=== PATIENT | female | born 1955 | race Caucasian/White ===

== ENCOUNTER 2018-03-28 12:19 | Outpatient (REF) | payer OTHER, SELFPAY ==
[2018-03-28 13:55] LABS: TSH (W/Ref FT4) 3.68 uIU/mL (0.358-3.74)
== END 2018-03-28 12:39 ==
LOC: NCHCN 12:19
PROVIDERS: Visit Provider Nurse Practitioner Family
DX: E03.9 Hypothyroidism, unspecified (principal); R53.83 Other fatigue; I10 Essential (primary) hypertension; E78.5 Hyperlipidemia, unspecified; E66.9 Obesity, unspecified
CPT/HCPCS: 84443

== ENCOUNTER 2018-05-30 13:22 | Day surgery (SDC) | payer OTHER, SELFPAY ==
--- NOTE | 2018-05-30 11:26 | W.COLOREPORT ---
Date of service: 05/30/18 Time of Service: 14:40 Colonoscopy Report Date of procedure: 05/30/18 Pre-op diagnosis general: Hx of polyps, recent diverticulitis Post-op diagnosis procedure note: other (Hx of polyps, Ferreira-diverticulosis, internal hemorrhoids) Procedure: Colonoscopy Surgeon: Marge Fairbanks Anesthesia proc note operative: MAC (Jaleesa Sanches, DIRECTOR EPIDEMIOLOGY / ASA 2) Estimated blood loss (mL): 0 Pathology: none sent Complications: None Disposition: same day Indications: Mrs. Byrd is a pleasant 62-year-old female who was seen in the office for a colonoscopy. She had just had a bout of diverticulitis. She also has a history of polyps in the past. Risks, benefits and complications have been reviewed. Complications include but are not limited to bleeding, pain, perforation, missed small lesion/polyp, sore throat, aspiration and adverse reaction to the medications. Questions were entertained and answered to their satisfaction and they wished to proceed. No guarantees were given or implied. Prep: Miralax/Dulcolax Procedure Start Time: 14:47 Procedure End Time: 15:48 Retraction Time: 11 minutes Findings: Ferreira diverticulosis and Grade 1 internal hemorrhoids Procedure Description: After informed consent was obtained the patient was taken to the procedure room and placed in a left decubitous position. Monitors were applied and a time out was done. The patients name, date of , procedure, allergies to medications and metal in their body was reviewed. The patient was then sedated. Once sedated and comfortable a rectal exam was done. External exam was normal. Internal exam revealed a normal sphincter tone and no palpable masses. The scope was then introduced and retro-flexed. Grade 1 internal hemorrhoids were identified. The scope was then advanced to the cecum without difficulty. The TI and appendiceal orifice were identified. The prep was adequate. The scope was then slowly retracted over 11 minutes back into the rectum. There was ferreira-diverticulosis noted, worse in the descending and sigmoid colon. The scope was removed and the patient was woken up and taken back to Same day surgery in stable condition. The patient tolerated the procedure well and there were no immediate complications. Follow up: The patient should follow up in 5 years unless they develop changes in bowel habits or other new gastrointestinal complaints.
--- NOTE | 2018-05-30 11:27 | W.PM.DSUDISC ---
Discharge Plan Disposition Patient Disposition: HOME Condition: Good Discharge Details Reason For Visit: DIVERTICULITIS Attending Provider: Marge Fairbanks Primary Care Provider: Barbara Boyd Home Meds and New Rx's Prescriptions: Continued losartan 25 mg tablet 25 mg PO DAILY RF: 0 Zyrtec 10 mg capsule 10 mg PO DAILY RF: 0 multivitamin [One Daily Multivitamin] tablet 1 tab PO DAILY RF: 0 coenzyme Q10 100 mg capsule 100 mg PO DAILY RF: 0 omega-3 fatty acids 1,000 mg capsule 1,000 mg PO DAILY RF: 0 Discharge Instructions Instructions: Colonoscopy (DC), Diverticulosis (DC), Hemorrhoids (DC) Additional Instructions: Findings: Diverticulosis of the entire large bowel Follow up: 5 years Please call if you develop: fevers >101.5 Nausea or Vomiting Shortness of breath Abdominal pain that is not transient DAY SURGERY UNIT POST COLONOSCOPY INSTRUCTIONS 1. Because there will be medication in your system for the next 24 hours, you may feel a little sleepy. Your coordination will be affected. Therefore: a. Do not drive or operate dangerous equipment for 24 hours. b. Do not drink alcohol beverages for 24 hours (not even beer). c. Plan to go home and rest for the day. 2. Generally there are no restrictions on your activity after a day or so has gone by, but you may feel a bit fatigued for a few days. 3 After you arrive home you may have a light meal and return to a normal diet as you can tolerate it without feeling sick to your stomach. 4. After surgery, you may feel pain or discomfort. This should be only transient, but if it persists please contact your doctor. 5. If there are any questions regarding the findings of your procedure, please feel free to contact your doctor. 6. If you are unable to contact your doctor with a problem, contact the ospital at [phone]. 7. Continue all your regular medications unless directed otherwise. I understand the above instructions and have no questions. Signature of Patient or Responsible Adult Escort Date/Time Name of Responsible Adult Escort Signature of Nurse Date/Time Activity:: Activity as Tolerated Diet:: high fiber diet Discharge Orders Discharge Orders: Discharge Order (Routine); Ordered 05/30/18 Ordered By: Marge Fairbanks DS: Diagnosis Discharge Diagnosis (1) Diverticulosis large intestine w/o perforation or abscess w/o bleeding: Status: Chronic (2) S/P colonoscopy: Status: Acute
[2018-05-30 13:37] VITALS: BP 134/83; PULSE 89; RESP 16; TEMP 37.3; O2SAT 97
[2018-05-30 13:43] VITALS: BP 134/83; PULSE 89; RESP 16; TEMP 37.3; O2SAT 97
[2018-05-30] MEDS: Lactated Ringers 1,000 ML 80 ML IV (13:55)
[2018-05-30 15:31] VITALS: BP 151/78; PULSE 70; RESP 18; TEMP 37; O2SAT 94
== END 2018-05-30 16:15 | disposition home or self-care (01) ==
PROVIDERS: PCP Nurse Practitioner Family; Visit Provider Surgery
PROC: 0DJD8ZZ Inspection of Lower Intestinal Tract, Via Natural or Artificial Opening Endoscopic (ICD-10-PCS; CPT 45378; principal; 2018-05-30 14:00)
DX: Z12.11 Encounter for screening for malignant neoplasm of colon (principal); K57.92 Diverticulitis of intestine, part unspecified, without perforation or abscess without bleeding; K57.30 Diverticulosis of large intestine without perforation or abscess without bleeding; K64.0 First degree hemorrhoids; Z86.010 Personal history of colon polyps; K21.9 Gastro-esophageal reflux disease without esophagitis; I10 Essential (primary) hypertension; Z09 Encounter for follow-up examination after completed treatment for conditions other than malignant neoplasm
CPT/HCPCS: 45378

== ENCOUNTER 2018-06-03 00:22 | Outpatient (CLI) | payer OTHER, SELFPAY ==
--- NOTE | 2018-06-03 09:42 | DI.MAMMO_ITS ---
SYMPTOM/DIAGNOSIS: SCREENING, Z12.31 MAMMOGRAMS: Mammograms were interpreted according to the usual protocol including computer analysis with CAD system, tomosynthesis and C view imaging. Comparison with prior examinations. Breast density B. No suspicious masses or microcalcifications are seen. There is no definite evidence of malignancy. IMPRESSION: Category 1-B, Negative mammogram. Routine screening is recommended. SA ASSESSMENT OF FINDINGS: Negative. Category 1. Patient will receive a letter notifying them of these results. BI-RADS category B. There are scattered areas of fibroglandular density.
--- NOTE | 2018-06-03 09:42 | DI.US_ITS ---
SYMPTOMS/DIAGNOSIS: LLQ PAIN, R10.32 PELVIC ULTRASOUND: Transabdominal and transvaginal examination was performed. The uterus measures 6.8 cm long x 3.1 cm AP x 4.5 cm transverse. The endometrial stripe is within normal limits at .2 cm. No myometrial masses are identified on this examination. The right ovary was not identified transabdominally or transvaginally. No right adnexal mass is present. Sonographically the left ovary measures 1.2 x 0.9 x 1.3 cm and is grossly unremarkable. Normal blood flow is seen. No evidence of torsion. No free pelvic fluid or hydronephrosis is identified. IMPRESSION: Unremarkable pelvic ultrasound. Nonvisualization of the right ovary transabdominally or transvaginally. No right adnexal mass is seen sonographically.
== END 2018-06-03 00:42 ==
PROVIDERS: PCP Nurse Practitioner Family; Visit Provider Nurse Practitioner Family
DX: R10.32 Left lower quadrant pain (principal); Z12.31 Encounter for screening mammogram for malignant neoplasm of breast
CPT/HCPCS: 77063; 77067; 76830; 76856

== ENCOUNTER 2018-09-24 13:26 | Outpatient (REF) | payer OTHER, SELFPAY ==
[2018-09-24 21:06] LABS: Anion Gap 6.2 mmol/L (3-11); BUN 14 mg/dL (7-18); CO2 31.8 mmol/L (21.0-32.0); CREATININE 0.94 mg/dL (0.55-1.02); Chloride 103 mmol/L (98-107); Cholesterol 243 mg/dL (50-200); Glucose 94 mg/dL (70-100); HDL Cholesterol 66 mg/dL (40-60); LDL CHOLESTEROL 147 mg/dL (<100); Potassium 4.6 mmol/L (3.5-5.1); Sodium 141 mmol/L (136-145); Triglyceride 120 mg/dL (30-150)
[2018-09-24 21:13] LABS: Calcium 9.5 mg/dL (8.5-10.1)
[2018-09-24 21:31] LABS: FREE T4 0.67 ng/dL (0.76-1.46)
== END 2018-09-24 13:46 ==
LOC: NCHCN 13:26
PROVIDERS: PCP Nurse Practitioner Family; Visit Provider Nurse Practitioner Family
DX: E78.5 Hyperlipidemia, unspecified (principal); I10 Essential (primary) hypertension; E03.9 Hypothyroidism, unspecified; E66.9 Obesity, unspecified
CPT/HCPCS: 80048; 80061; 83721; 84439; 84443

== ENCOUNTER 2019-01-28 09:50 | Outpatient (REF) | payer OTHER, SELFPAY ==
[2019-01-28 13:19] LABS: TSH (W/Ref FT4) 5.39 uIU/mL (0.36-3.74)
== END 2019-01-28 10:10 ==
LOC: NCHCN 09:50
PROVIDERS: PCP Nurse Practitioner Family; Visit Provider Nurse Practitioner Family
DX: I10 Essential (primary) hypertension (principal); E03.9 Hypothyroidism, unspecified; R53.83 Other fatigue; E78.5 Hyperlipidemia, unspecified; J30.9 Allergic rhinitis, unspecified
CPT/HCPCS: 84439; 84443

== ENCOUNTER 2020-04-01 16:18 | Outpatient (REF) | payer OTHER, SELFPAY ==
--- NOTE | 2020-04-01 14:00 | PAPFT_PTH ---
PATIENT: Rachael Byrd LOC: [facility] U#:[id number] AGE/SX: 64/F ROOM: RE04/01/[address]: NELI Escamilla : 1955 BED: DIS: 04/01/2020 SPEC #: [id number] RECD: 04/01/20 17:38 STATUS: PEYTON REBogdan #: [id number] NATHANAEL: 04/01/20 14:[address]: Eli Harden DEPT: [facility] Cytology RECD BY: Angela Malone ENTERED: 04/01/20 17:39 SP TYPE: PAPFT OTHR DR: Barbara Boyd Tissues: 1 - CX/ENDOCX FOR PAP SMEARS Procedures: PAP THIN PREP/UVM Screening HPV DNA PROBE Comments: [id number]
== END 2020-04-01 16:38 ==
LOC: LBN 16:18
PROVIDERS: PCP Nurse Practitioner Family; Visit Provider Nurse Practitioner Family
DX: Z12.4 Encounter for screening for malignant neoplasm of cervix (principal); Z11.51 Encounter for screening for human papillomavirus (HPV)
CPT/HCPCS: 88142; 87624

== ENCOUNTER 2020-04-21 01:19 | Outpatient (CLI) | payer OTHER, SELFPAY ==
--- NOTE | 2020-04-21 13:13 | DI.MAMMO_ITS ---
EXAM: MG MAMMO SCREENING CLINICAL HISTORY: screening TECHNIQUE: Bilateral full field digital CC and MLO mammographic images were obtained with 3D tomosyn thesis and utilizing computer aided detection (CAD). COMPARISON: Available for comparison. FINDINGS: Masses/Architectural Distortion: None seen. Microcalcifications: No suspicious pleomorphic-type are seen. Skin Thickening/Nipple Retraction: None. IMPRESSION: 1. No significant interval change with no specific features of malignancy noted. 2. Unless there is more urgent need, screening mammography is recommended, as per [place] [employer] guidelines. BI-RADS Category 1 - Negative Breast Density - Category B - Scattered areas of fibroglandular density A negative radiographic report should not delay biopsy if a dominant or clinically suspicious mass is present. Up to ten percent of cancers are not identified on mammography. A negative report may reinforce clinical impression. Adenosis and dense breasts may obscure an underlying neoplasm. False positive reports average 6 to 10%. Patient will receive a letter notifying them of these results.
== END 2020-04-21 01:39 ==
PROVIDERS: PCP Nurse Practitioner Family; Visit Provider Nurse Practitioner Family
DX: Z12.31 Encounter for screening mammogram for malignant neoplasm of breast (principal)
CPT/HCPCS: 77063; 77067

== ENCOUNTER 2021-09-28 01:04 | Outpatient (CLI) | payer OTHER, SELFPAY ==
--- NOTE | 2021-09-28 16:19 | DI.MAMMO_ITS ---
Exam(s) MAMMO SCREENING EXAM: MAMMO SCREENING CLINICAL HISTORY: SCREENING, [id number] TECHNIQUE: Mammograms were interpreted according to the usual protocol including computer analysis w [employer] CAD system, tomosynthesis and C-view imaging. COMPARISON: 2011 through 2019 FINDINGS: The breasts are composed of scattered fibroglandular densities, Breast Density category B. No suspicious masses or suspicious microcalcifications are seen. No skin thickening or abnormal axillary lymph nodes are seen. There has been no significant change from prior exams. IMPRESSION: BI-RADS Category 1, Negative mammogram Yearly screening mammography is recommended. Breast Density - Category B, scattered fibroglandular densities. A negative radiographic report should not delay biopsy if a dominant or clinically suspicious mass is present. Up to ten percent of cancers are not identified on mammography. A negative report may reinforce clinical impression. Adenosis and dense breasts may obscure an underlying neoplasm. False positive reports average 6 to 10%. Patient will receive a letter notifying them of these results.
== END 2021-09-28 01:24 ==
PROVIDERS: PCP Nurse Practitioner Family; Visit Provider Internal Medicine
DX: Z12.31 Encounter for screening mammogram for malignant neoplasm of breast (principal)
CPT/HCPCS: 77063; 77067

== ENCOUNTER 2022-01-30 15:38 | Outpatient (CLI) | payer OTHER, SELFPAY ==
--- NOTE | 2022-01-30 14:15 | DI.RAD_ITS ---
Exam(s) XR HIP LT COMPLETE AP PELVIS EXAM: XR HIP LT COMPLETE AP PELVIS CLINICAL HISTORY: pain. TECHNIQUE: 2D digital imaging was performed. COMPARISON: No exams were available for comparison FINDINGS: Two views-AP pelvis both hips plus lateral view of the left hip: No evidence of pelvic nor hip fracture. No hip joint space narrowing. Lateral view of the left hip does not reveal osteophytes nor joint space narrowing. Bone density is normal. No osseous lesions. IMPRESSION: DATA REPOSITORY: RADIATION DOSE DELIVERED:
--- NOTE | 2022-01-30 14:15 | DI.RAD_ITS ---
Exam(s) XR LUMBAR SPINE AP, LAT EXAM: XR LUMBAR SPINE AP, LAT CLINICAL HISTORY: numbness. TECHNIQUE: 2D digital imaging was performed. COMPARISON: No exams were available for comparison FINDINGS: 3 views There is no evidence of fracture, listhesis, or pars defects. There is mild disc space narrowing at L4-5 and L5-S1 levels. Also slight anterior osseous lipping at L3-4 level may indicate degenerative disc disease despite preserved disc height at this level. Bone density normal. No osseous lesions. No scoliosis. Mild degenerative changes in the facet joints. SI joints appear unremarkable. IMPRESSION: Mild disc space narrowing as described above. If clinically indicated follow-up MRI can be performed . DATA REPOSITORY: RADIATION DOSE DELIVERED:
== END 2022-01-30 15:39 | disposition home or self-care (01) ==
LOC: DIORS 15:38
PROVIDERS: PCP Nurse Practitioner Family; Referring Provider Nurse Practitioner Family; Visit Provider Physician Assistant Surgical
DX: M25.552 Pain in left hip (principal); R20.0 Anesthesia of skin; M48.061 Spinal stenosis, lumbar region without neurogenic claudication; M48.07 Spinal stenosis, lumbosacral region
CPT/HCPCS: 72100; 73502

== ENCOUNTER → 2022-02-02 01:15 | Outpatient (CLI) | payer OTHER, SELFPAY ==
--- NOTE | 2022-02-02 07:52 | DI.RAD_ITS ---
Exam(s) RF JOINT INJECTION FLUORO GUID EXAM: RF JOINT INJECTION FLUORO GUID CLINICAL HISTORY: L HIP INJ UNDER FLUORO.[id number],LT HIP PAIN, M25.552. TECHNIQUE: 2D and realtime digital imaging was performed. COMPARISON: CR XR HIP LT COMPLETE AP PELVIS from 01/30/2022 FINDINGS: Approximately with provided for Dr. Rios for guidance with performing a left hip injection Please see procedure note for details. Fluoro time: 1 second RADIATION DOSE DELIVERED: reji Hall=13.7 mGy
[2022-02-02] MEDS: Bupivacaine 0.5% Pres-Free 30 ML VIAL 5 ML IJ (14:57)
[2022-02-02] MEDS: methylPREDNISolone ACETATE 80 MG/ML VIAL IM (14:58)
[2022-02-02] MEDS: Omnipaque 300 MG/ML 10 ML BTL IJ (14:58)
--- NOTE | 2022-02-05 17:21 | W.PROCNOTE ---
Date of service: 02/02/22 Time of Service: 14:30 Procedure Note Date of procedure: 02/02/22 Procedure: Left Hip Injection with Fluoroscopic Guidance Surgeon/Proceduralist/Physician: Mookie Rios Procedure Diagnosis: Left Hip Pain Procedure Indications: Rachael has had persistent pain of the LEFT hip and groin. Noninvasive measures have been tried. To serve as both diagnostic and therapeutic, an injection under fluoroscopy was recommended. I had discussed the risks of the procedure and the patient elected to proceed. Procedure Description: Rachael was greeted in the flouroscopy room. The correct side was identified and the consent was reviewed with the patient and signed. The patient was then placed in the supine position on the fluoroscopy table. The LEFT hip was then prepped with Chloraprep. The anterolateral injection starting point was identiifed by bony landmarks and fluoroscopy. The skin and soft tissue in the tract of the injection was anesthetized with 1% Lidocaine. A spinal needle was then inserted deep into the hip joint at the level of the lateral femoral neck under fluoroscopic guidance. A small amount of Omnipaque solution was injected to confirm intraarticular placement. Once confirmed, the hip was injected with 6cc of 0.5% Bupivicaine and 80mg of Depo-Medrol. A bandaid was placed on the injection site. The patient tolerated the procedure well and noted improvement in pre-injection pain.
== END ==
PROVIDERS: PCP Nurse Practitioner Family; Visit Provider Student in an Organized Health Care Education/Training Program
DX: M25.552 Pain in left hip (principal)
CPT/HCPCS: 20610; 77002; J1040

== ENCOUNTER 2022-03-13 06:13 | Day surgery (SDC) | payer OTHER, SELFPAY ==
[2022-03-13 06:15] VITALS: BP 133/65; PULSE 89; RESP 18; TEMP 36.5; O2SAT 96
--- NOTE | 2022-03-13 06:25 | HPE_ITS ---
Assessment and Plan Assessment and plan (1) Encounter for screening colonoscopy for bmt-jcbx-qdrb patient: Status: Acute Assessment and plan: Rachael is back to see me today because she has been having more bleeding and itching from her internal hemorrhoids.? She had a colonoscopy back in 2017 which was unremarkable.? She did have some precancerous polyps prior to that.? She also has a family history of colon cancer in her mother.? She is scheduled for colonoscopy in July but in light of her issue with her internal hemorrhoids we will try to move that up so that we can do a colonoscopy and internal hemorrhoid banding.? We discussed both the colonoscopy and the internal hemorrhoid banding.? We reviewed the risks, benefits, alternatives and complications.? Risks, benefits and complications have been reviewed. Complications include but are not limited to bleeding, pain, perforation, missed small lesion/polyp, sore throat, aspiration and adverse reaction to the medications. Questions were entertained and answered to their satisfaction and they wished to proceed. No guarantees were given or implied. Proceed with colonoscopy and internal hemorrhoid banding under sedation. History of Present Illness Narrative: Mrs Byrd is a pleasant 66 year old female who is here to discuss treatment for hemorrhoids. She had a Colonoscopy in 2017 and she had no polyps but was noted to have internal hemorrhoids.? She has dealt with them but recently has had increase in pain, itching and bleeding. She also has some stool leakage. She is due for a colonoscopy in may and is scheduled for one in July. She has had no melena, changes in bowel habits, or unintentional weight loss.? She has a family history of colon cancer in her Mother. Review of Systems All systems reviewed & are unremarkable except as noted in HPI and below PFSH All Active Problems Encounter for screening colonoscopy for gyg-goeb-mrtb patient (Acute) Internal hemorrhoids (Acute) Bright red blood per rectum (Acute) Screening for colon cancer (Acute) External hemorrhoid, bleeding (Acute) TBI (traumatic brain injury) (Acute) Hypertension (Chronic) Vaginal atrophy (Acute) Post-menopausal bleeding (Acute) S/P colonoscopy (Acute ~05/30/18) Diverticulosis large intestine w/o perforation or abscess w/o bleeding (Chronic) Pseudocholinesterase deficiency (Chronic) Family history of ovarian cancer (Acute) Mother - at 71 Renal mass, right (Acute 09/09/15) Medical History Abnormal Pap history abnormal Pap history FRANNY 1 with colpo/Bx 1997 benign HPV + 2011 Colpo repeat negative . Endocx curettage benign DIVERTICULOSIS herniated lumbar disc 2013 Hyperlipidemia Obesity Postmenopausal bleeding 04/2014 Subclinical hypothyroidism Torn L meniscus 2013 Surgical History Arthroplasty of knee 04/2014 [facility] Dr [place] section x2 Colonoscopy - IV Sedation (06/15/08) NO POLYPS S/P lateral meniscus repair of right knee 2015 Family History Mother Personal history of malignant neoplasm Ovarian cancer Colon cancer Sister Leukemia Other Heart disease Hyperlipidemia Social History Smoking/Tobacco Use Status: Never Smoking risk assessment performed?: Yes Alcohol Intake: current Alcohol Intake frequency: a few times a week Drug use: Never Substance use type: does not use Do you feel safe at home: Yes Do you feel safe in your relationship?: Yes Female Reproductive History Menstrual Menopause type: natural History History 2 Para 2 Hx # Term Pregnancies Multiple births Hx # Pregnancies Ectopic pregnancies AB induced Hx Number of Living Children AB spontaneous Meds Allergies and Home Medications Allergies Allergy/AdvReac Type Severity Reaction Status Date / Time amlodipine [From Norvasc] Allergy Intermediate Itching Verified 03/13/22 06:31 lisinopril Allergy Intermediate Itching Verified 03/13/22 06:31 losartan Allergy Unknown Verified 03/13/22 06:31 WALNUTS Allergy BLISTER IN Uncoded 03/13/22 06:31 MOUTH Home Medications Medication Instructions Recorded Confirmed Type cetirizine 10 mg capsule (Zyrtec) 10 mg PO DAILY 04/23/18 03/13/22 History multivitamin (One Daily 1 tab PO DAILY 05/16/18 03/13/22 History Multivitamin tablet) omega-3 fatty acids 1,000 mg 1,000 mg PO DAILY 05/16/18 03/13/22 History capsule hydrocortisone acetate 25 mg 25 mg WA BID #12 ea 09/25/20 03/10/22 Rx rectal suppository (Anusol-HC) B6 1.7 mg-folic 400 mcg-B12 2.4 1 cap PO DAILY 03/22/21 03/13/22 History wbb-kemhxg-gwuirjudkjwu oral capsule (Neuriva Plus Brain Performance) estradiol 10 mcg vaginal tablet 10 mcg vaginal DAILY 2 weeks #24 06/07/21 03/13/22 Rx (Vagifem) tabs coenzyme Q10 30 mg capsule (Co 30 mg PO DAILY 02/02/22 03/13/22 History Q-10) glucosamine sulfate 500 mg tablet 500 mg PO DAILY 02/02/22 03/13/22 History (Glucosamine) bisacodyl 5 mg tablet,delayed 5 mg PO ONCE #4 tabs 02/07/22 03/13/22 Rx release (Dulcolax (bisacodyl)) polyethylene glycol 3350 17 17 g PO ONCE #238 grams 02/07/22 03/13/22 Rx gram/dose oral powder Exam Const General: cooperative, comfortable and no acute distress Orientation: alert and oriented x3 Resp Effort & Inspection: normal respiratory effort Auscultation: clear to auscultation bilaterally Cardio Rate: regular rate Rhythm: regular rhythm
--- NOTE | 2022-03-13 06:28 | COLE_ITS ---
Colonoscopy Report Date of procedure: 03/13/22 Pre-op diagnosis general: Colon Cancer Screening and internal hemorrhoids Post-op diagnosis procedure note: same (and external hemorrhoids, diverticulosis) Procedure: Colonoscopy Anoscopy with internal hemorrhoid banding Surgeon: Marge Fairbanks Anesthesia Type: General:No Airway Estimated blood loss (mL): 3 Pathology: none sent Complications: None Disposition: same day Indications: Rachael is back to see me today because she has been having more bleeding and itching from her internal hemorrhoids.? She had a colonoscopy back in 2017 which was unremarkable.? She did have some precancerous polyps prior to that.? She also has a family history of colon cancer in her mother.? She is scheduled for colonoscopy in July but in light of her issue with her internal hemorrhoids we will try to move that up so that we can do a colonoscopy and internal hemorrhoid banding.? We discussed both the colonoscopy and the internal hemorrhoid banding.? We reviewed the risks, benefits, alternatives and complications.? Risks, benefits and complications have been reviewed. Complications include but are not limited to bleeding, pain, perforation, missed small lesion/polyp, sore throat, aspiration and adverse reaction to the medicati ons. Questions were entertained and answered to their satisfaction and they wished to proceed. No guarantees were given or implied. Proceed with colonoscopy and internal hemorrhoid banding under sedation. Prep: Miralax/Dulcolax Procedure Start Time: :26 Procedure End Time: 07:50 Retraction Time: 12 minutes Findings: External and internal hemorrhoids Moderate ferreira-diverticulosis Procedure Description: After informed consent was obtained the patient was taken to the procedure room and placed in a left decubitous position. Monitors were applied and a time out was done. The patients name, date of , procedure, allergies to medications and metal in their body was reviewed. The patient was then sedated. Once sedated and comfortable a rectal exam was done. External exam was normal. Internal exam revealed a normal sphincter tone and no palpable masses. The scope was then introduced and retro-flexed. Grade 2 internal hemorrhoids were identified. No polyps or masses were identified on retro-flexion. The scope was then advanced to the cecum without difficulty. The ileocecal vlave and appendiceal orifice were identified. The prep was good. The scope was then slowly retracted over 12 minutes back into the rectum. There were no Polyps. There was moderate ferreira- diverticulosis noted. The scope was removed. Anoscopy was then performed and 2 Grade 2 internal hemorrhoids were banded at the 9 and 3 o'clock position. The patient was woken up and taken back to Same day surgery in stable condition. The patient tolerated the procedure well and there were no immediate complications.
--- NOTE | 2022-03-13 06:29 | W.PM.DSUDISC ---
Discharge Plan Disposition Patient Disposition: HOME Condition: Good Discharge Details Reason For Visit: colonoscopy Attending Provider: Marge Fairbanks Primary Care Provider: Barbara Boyd Home Meds and New Rx's Prescriptions: Continued Zyrtec 10 mg capsule 10 mg PO DAILY multivitamin [One Daily Multivitamin] tablet 1 tab PO DAILY omega-3 fatty acids 1,000 mg capsule 1,000 mg PO DAILY Neuriva Plus Brain Performance 1.7 mg-400 mcg- 2.4 mcg capsule 1 cap PO DAILY hydrocortisone acetate [Anusol-HC] 25 mg suppository 25 mg [place] BID Qty: 12 0RF Rx Instructions: insert one suppository twice daily. Do not exceed use for one week estradiol [Vagifem] 10 mcg tablet 10 mcg vaginal DAILY 14 Days Qty: 24 3RF Rx Instructions: use one tab in vagina at bedtime twice weekly glucosamine sulfate [Glucosamine] 500 mg tablet 500 mg PO DAILY Rx Instructions: administer with a meal coenzyme Q10 [Co Q-10] 30 mg capsule 30 mg PO DAILY Discontinued bisacodyl [Dulcolax (bisacodyl)] 5 mg tablet,delayed release (DR/EC) 5 mg PO ONCE Qty: 4 0RF Rx Instructions: Take according to provider's instructions for colonoscopy prep. polyethylene glycol 3350 17 gram/dose powder 17 g PO ONCE Qty: 238 0RF Rx Instructions: To be taken as directed by prescriber's office for colonoscopy prep. Discharge Instructions Instructions: Hemorrhoids (DC), Rubber Band Ligation (DC), Diverticulosis (DC) Additional Instructions: Findings: internal hemorrhoids, diverticulosis Follow up: 10 years Please call if you develop: fevers >101.5 Nausea or Vomiting Abdominal pain that is not transient Rectal bleeding that is more then a tbsp A hard abdomen and inability to pass gas DAY SURGERY UNIT POST ENDOSCOPY INSTRUCTIONS Instructions for everyone who is given Anesthesia: For your safety, please do the following for the next 24 Hours: a. Do not drive or operate dangerous equipment b. Do not drink alcohol beverages or use any recreational drugs for the first 24 hours or while taking pain medications. The medications in your body may have a reaction that can be dangerous. c. Do not make any important decisions or sign any important papers 1. Generally there are no restrictions on your activity after a day or so has gone by, but you may feel a bit fatigued for a few days. 2. After you arrive home you may have a light meal and return to a normal diet as you can tolerate it without feeling sick to your stomach. 3. After surgery, you may feel pain or discomfort. This should be only transient, but if it persists please contact your doctor. 4. If there are any questions regarding the findings of your procedure, please feel free to contact your doctor. 6. If you are unable to contact your doctor with a problem, contact the hospital at [phone]. 7. Continue all your regular medications unless directed otherwise. I understand the above instructions and have no questions. Signature of Patient or Responsible Adult Escort Date/Time Name of Responsible Adult Escort Signature of Nurse Date/Time Activity:: Activity as Tolerated Diet:: hhigh fiber diet Discharge Orders Discharge Orders: Discharge Order (Routine); Ordered 03/13/22 Ordered By: Marge Fairbanks DS: Diagnosis Discharge Diagnosis (1) Encounter for screening colonoscopy for [id number] patient: Status: Acute
[2022-03-13] MEDS: Lactated Ringers 1,000 ML 80 ML IV (06:45)
--- NOTE | 2022-03-13 07:09 | ANES.PREOP_ITS ---
General Info Date of Service Date Performed: 03/13/22 Height: 5 ft 2 in Weight: 79.5 kg Body Mass Index (BMI): 32.0 Surgical Procedure: Operation Date: 03/13/22 07:40 Proposed Procedure Side Surgeon p Colonoscopy Marge Fairbanks MD s Hemorrhoid Banding Marge Fairbanks MD Meds Allergies and Home Medications Allergies Allergy/AdvReac Type Severity Reaction Status Date / Time amlodipine [From [facility]] Allergy Intermediate Itching Verified 03/13/22 06:31 lisinopril Allergy Intermediate Itching Verified 03/13/22 06:31 losartan Allergy Unknown Verified 03/13/22 06:31 WALNUTS Allergy BLISTER IN Uncoded 03/13/22 06:31 MOUTH Home Medication Medication Instructions Recorded cetirizine 10 mg capsule (Zyrtec) 10 mg PO DAILY 04/23/18 multivitamin (One Daily 1 tab PO DAILY 05/16/18 Multivitamin tablet) omega-3 fatty acids 1,000 mg 1,000 mg PO DAILY 05/16/18 capsule hydrocortisone acetate 25 mg 25 mg FL BID #12 ea 09/25/20 rectal suppository (Anusol-HC) B6 1.7 mg-folic 400 mcg-B12 2.4 1 cap PO DAILY 03/22/21 [id number] oral capsule (Neuriva Plus Brain Performance) estradiol 10 mcg vaginal tablet 10 mcg vaginal DAILY 2 weeks #24 06/07/21 (Vagifem) tabs coenzyme Q10 30 mg capsule (Co 30 mg PO DAILY 02/02/22 Q-10) glucosamine sulfate 500 mg tablet 500 mg PO DAILY 02/02/22 (Glucosamine) bisacodyl 5 mg tablet,delayed 5 mg PO ONCE #4 tabs 02/07/22 release (Dulcolax (bisacodyl)) polyethylene glycol 3350 17 17 g PO ONCE #238 grams 02/07/22 gram/dose oral powder Current Visit Medications: Current Medications Generic Name Dose Route Start Last Admin Trade Name Freq PRN Reason Stop Dose Admin Hyoscyamine Sulfate 0.125 mg 03/13/22 06:32 Hyoscyamine 0.125 Mg Sl/Oral/Chew SL DIRECTED PRN Ringer's Solution 1,000 mls @ 80 mls/hr 03/13/22 06:00 03/13/22 06:45 IV 04/09/22 23:59 80 mls/hr INFUSION CARYN Administration IV Miscellaneous Supplies 1 each 03/13/22 06:00 Iv Access IV 04/09/22 23:59 DIRECTED CARYN Ondansetron HCl 4 mg 03/13/22 06:32 Ondansetron 4 Mg/2 Ml Vial IVP Q4H PRN PRN Nausea / Vomiting Sodium Chloride 0 ml 03/13/22 06:00 Normal Saline Flush 10 Ml Syr IV 04/09/22 23:59 PRN PRN Sodium Chloride 0 ml 03/13/22 06:00 Normal Saline 10 Ml Vial IJ 04/09/22 23:59 DIRECTED PRN Sterile Water 0 ml 03/13/22 06:00 Water,Injection,Sterile 10 Ml Vial IJ 04/09/22 23:59 DIRECTED PRN PFSH Active Problems Active Problems: Problem Status Onset Code Encounter for screening colonoscopy for [id number] patient Z12.11 Internal hemorrhoids K64.8 Bright red blood per rectum K62.5 Screening for colon cancer Z12.11 External hemorrhoid, bleeding K64.4 TBI (traumatic brain injury) S06.9X9A Hypertension I10 Vaginal atrophy N95.2 Post-menopausal bleeding N95.0 S/P colonoscopy ~05/30/18 Z98.890 Diverticulosis large intestine w/o perforation or abscess w/o bleeding K57.30 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 Endocx curettage benign DIVERTICULOSIS herniated lumbar disc 2013 Hyperlipidemia Obesity Postmenopausal bleeding 04/2014 Subclinical hypothyroidism Torn L meniscus 2013 Surgical History Surgical History Arthroplasty of knee 04/[address] [facility] [address] [place] section x2 Colonoscopy - IV Sedation (06/15/08) NO POLYPS S/P lateral meniscus repair of right knee 2016 Tobacco Smoking/Tobacco Use Status: Never Alcohol Alcohol Intake: current Alcohol intake frequency: a few times a week Substance Use Substance use: Never Substance use type: does not use Prental History History 2 Para 2 Hx # Term Pregnancies Multiple births Hx # Pregnancies Ectopic pregnancies AB induced Hx Number of Living Children AB spontaneous Vital Signs and Lab Results Vital Signs Most Recent Vital Signs in EMR: Most Recent Vital Signs Temp Pulse Resp BP Pulse Ox 36.5 C 89 18 133/65 96 03/13/22 06:15 03/13/22 06:15 03/13/22 06:15 03/13/22 06:15 03/13/22 06:15 Lab Results Blood Type / Crossmatch: No Data to Display Complete Blood Count: No Data to Display Complete Metabolic Panel: No Data to Display Liver Function Panel: No Data to Display Coagulation Panel: No Data to Display Cardiac Panel: No Data to Display Arterial Blood Gas: No Data to Display Venous Blood Gas: No Data to Display Pancreas Panel: No Data to Display Thyroid Panel: No Data to Display Infectious Disease: No Data to Display Blood Cultures: No Data to Display Toxicology Panel: No Data to Display Anesthesia Assessment and Plan Anesthesia History Personal History: Pseudocholinesterase Deficiency Family History: No Family History of Anesthesia Complications Exercise Tolerance Exercise Tolerance: Metabolic Equivalents>4 Pertinent Negatives Pertinent Negatives: No Symptoms of GERD, No Major Cardiovascular Symptoms or Complaints, No Major Pulmonary Symptoms or Complaints and No History of CVA/TIA Cardiac & Pulmonary Exam Cardiac Exam: Normal S1/S2 Heart Sounds Pulmonary Exam: Clear Bilateral Breath Sounds Implantable Cardiac Device Does patient have a Pacemaker or an ICD?: No Airway Exam Known Difficult Airway: No Mallampati Class: 3 Mouth Opening: Normal (> 3cm) Thyromental Distance: Greater than 3 cm Neck Range of Motion: Full ROM Neck Circumference: Normal Teeth Condition: Normal Dentition ASA Classification ASA Score: ASA 2 Emergency Case?: No NPO Status NPO Status: NPO Clears >2 hours, Solids >8 hours Anesthesia Plan Resuscitation Status: Full Code Anesthesia Technique: General Anesthesia Airway Planned: Natural Airway Monitors Used: Standard Monitors
[2022-03-13 07:17] VITALS: BMI 32.0
[2022-03-13 07:57] VITALS: BP 136/78; PULSE 89; RESP 18; TEMP 36.5; O2SAT 97
--- NOTE | 2022-03-13 08:07 | W.ANESPOSTOP ---
Postoperative Evaluation Date, Time and Location Date Performed: 03/13/22 Time Performed: 08:07 Patient Location: Day Surgery Unit Vital Signs Most Recent Imported Vital Signs: Most Recent Vital Signs Temp Pulse Resp BP Pulse Ox 36.5 C 89 18 136/78 97 03/13/22 07:57 03/13/22 07:57 03/13/22 07:57 03/13/22 07:57 03/13/22 07:57 Pain Score Most Recent Pain Score: Most Recent Pain Score Pain Level 3 03/13/22 07:57 Assessment Mental Status: Awake (Alert & Oriented to Patient Baseline) Airway and Respiratory Function: Patent airway with normal (patient baseline) respiratory exam Cardiovascular Function: Hemodynamically Stable Hydration Status: Adequately Hydrated Nausea & Vomiting: No Nausea or Vomiting Pain: Pain is tolerable per patient Peripheral Nerve Block: Patient did not receive a nerve block
[2022-03-13 08:10] VITALS: BP 129/72; PULSE 80; RESP 18; TEMP 36.5; O2SAT 96
[2022-03-13] MEDS: Ketorolac 30 MG/ML VIAL IVP (08:35)
[2022-03-13 08:47] VITALS: BP 147/66; PULSE 81; RESP 18; TEMP 36.4; O2SAT 95
== END 2022-03-13 09:03 | disposition home or self-care (01) ==
PROVIDERS: PCP Nurse Practitioner Family; Visit Provider Surgery
PROC: 0DJD8ZZ Inspection of Lower Intestinal Tract, Via Natural or Artificial Opening Endoscopic (ICD-10-PCS; CPT 45378; principal; 2022-03-13 07:30)
PROC: (CPT 45378; 2022-03-13 07:30)
DX: Z12.11 Encounter for screening for malignant neoplasm of colon (principal); K64.8 Other hemorrhoids; K64.4 Residual hemorrhoidal skin tags; Z86.010 Personal history of colon polyps; Z80.0 Family history of malignant neoplasm of digestive organs; K57.30 Diverticulosis of large intestine without perforation or abscess without bleeding
CPT/HCPCS: 45378; 46221; J1885

== ENCOUNTER → 2023-04-16 01:45 | Outpatient (CLI) | payer MEDICARE, SELFPAY ==
--- NOTE | 2023-04-16 09:30 | DI.MAMMO_ITS ---
Exam(s) MAMMO SCREENING EXAM: MAMMO SCREENING CLINICAL HISTORY: screening, Z12.39 TECHNIQUE: Mammograms were interpreted according to the usual protocol including computer analysis w [employer] CAD system, tomosynthesis and C-view imaging. COMPARISON: 2012 through 2021 FINDINGS: The breasts are composed of scattered fibroglandular densities, Breast Density category B. Saw question of an area of nodularity versus overlying structures in the upper outer quadrant of the left breast and anterior tissue. Spot compression views are recommended for further evaluation. Ult rasound may also be indicated at that time. No suspicious masses or suspicious microcalcifications or changes are seen the right breast. No skin thickening or abnormal axillary lymph nodes are seen. IMPRESSION: BI-RADS Category 0 - Assessment Incomplete: Need additional imaging evaluation Breast Density - Category B, scattered fibroglandular densities. A negative radiographic report should not delay biopsy if a dominant or clinically suspicious mass is present. Up to ten percent of cancers are not identified on mammography. A negative report may reinforce clinical impression. Adenosis and dense breasts may obscure an underlying neoplasm. False positive reports average 6 to 10%. Patient will receive a letter notifying them of these results.
== END ==
PROVIDERS: PCP Nurse Practitioner Family; Visit Provider Obstetrics & Gynecology
DX: Z12.31 Encounter for screening mammogram for malignant neoplasm of breast (principal)
CPT/HCPCS: 77063; 77067

== ENCOUNTER → 2023-04-20 00:36 | Outpatient (CLI) | payer MEDICARE, SELFPAY ==
--- NOTE | 2023-04-20 | DI.MAMMO_ITS ---
Exam(s) MAMMO SCREEN CALL BACK UNI EXAM: MAMMO SCREEN CALL BACK UNI CLINICAL HISTORY: F/U MAMMO, SMALL AREA NODULARITY VS OVERLYING STRUCTURES,UOQ LT TECHNIQUE: Spot compression views with tomographic imaging were performed. COMPARISON: Exams from 2012 through recent exam of April 09 FINDINGS: No suspicious masses or suspicious microcalcifications are seen. No persistent abnormality is seen on the additional views performed. The findings are consistent wit h overlying fibroglandular tissue. There has been no significant change from prior exams. IMPRESSION: BI-RADS Category 1, Negative Yearly screening mammography is recommended. Breast Density - Category B, scattered fibroglandular densities.
== END ==
PROVIDERS: PCP Nurse Practitioner Family; Visit Provider Obstetrics & Gynecology
DX: Z12.31 Encounter for screening mammogram for malignant neoplasm of breast (principal); R92.8 Other abnormal and inconclusive findings on diagnostic imaging of breast
CPT/HCPCS: 77063; 77067

== ENCOUNTER 2024-06-19 10:44 | Outpatient (REF) | payer MEDICARE, OTHER, SELFPAY ==
--- NOTE | 2024-06-19 10:30 | PAPFT_PTH ---
PATIENT: Rachael Byrd LOC: [facility] U#:[id number] AGE/SX: 68/F ROOM: RE06/19/[address]: Mariel Dacosta DO : 1955 BED: DIS: 06/19/2024 SPEC #: [id number] RECD: 06/20/24 13:14 STATUS: PEYTON REQ #: [id number] NATHANAEL: 06/19/24 10:[address]: Mariel Dacosta DEPT: [facility] Cytology RECD BY: Angela Malone ENTERED: 06/20/24 13:14 SP TYPE: PAPFT OTHR DR: Barbara Boyd Tissues: 1 - CX/ENDOCX FOR PAP SMEARS Procedures: PAP THIN PREP/[facility] Screening HPV DNA PROBE Comments: [id number] (HPV 16 & 18/45)
== END 2024-06-19 10:45 | disposition home or self-care (01) ==
LOC: LBN 10:44
PROVIDERS: PCP Nurse Practitioner Family; Visit Provider Obstetrics & Gynecology
DX: Z12.4 Encounter for screening for malignant neoplasm of cervix (principal); Z12.39 Encounter for other screening for malignant neoplasm of breast
CPT/HCPCS: 88142; 87624

== ENCOUNTER 2024-07-02 02:05 | Outpatient (CLI) | payer MEDICARE, OTHER, SELFPAY ==
--- NOTE | 2024-07-02 08:33 | DI.MAMMO_ITS ---
Exam(s) MAMMO SCREENING EXAM: MAMMO SCREENING CLINICAL HISTORY: screening TECHNIQUE: Mammograms were interpreted according to the usual protocol including computer analysis w [employer] CAD system, tomosynthesis and C-view imaging. COMPARISON: 2015 through 2022 FINDINGS: The breasts are composed of scattered fibroglandular densities, Breast Density category B. No suspicious masses or suspicious microcalcifications are seen. No skin thickening or abnormal axillary lymph nodes are seen. There has been no significant change from prior exams. IMPRESSION: BI-RADS Category 1, Negative mammogram Yearly screening mammography is recommended. Breast Density - Category B, scattered fibroglandular densities. A negative radiographic report should not delay biopsy if a dominant or clinically suspicious mass is present. Up to ten percent of cancers are not identified on mammography. A negative report may reinforce clinical impression. Adenosis and dense breasts may obscure an underlying neoplasm. False positive reports average 6 to 10%. Patient will receive a letter notifying them of these results.
== END 2024-07-02 02:25 ==
LOC: DI 02:05
PROVIDERS: PCP Nurse Practitioner Family; Visit Provider Obstetrics & Gynecology
DX: Z12.31 Encounter for screening mammogram for malignant neoplasm of breast (principal); R92.323 Mammographic fibroglandular density, bilateral breasts
CPT/HCPCS: 77063; 77067